=== PATIENT | female | born 1970 | race Asian ===

== ENCOUNTER 2017-06-27 10:57 | Emergency (ER) | payer OTHER ==
[2017-06-27 11:15] VITALS: BMI 29.2
--- NOTE | 2017-06-27 11:42 | PDOC ---
History of Present Illness - General Chief Complaint: Shortness of Breath Stated Complaint: PAIN (PCP SENT) Time Seen by Provider: 06/27/17 11:24 History Source: Patient Exam Limitations: No Limitations - History of Present Illness Initial Comments: 06/27/17 13:51 CC: 2 day h/o shortness of breath Patient is a 46 y.o. female with no noted PMH who presents to our ED today c/o 2 day h/o of shortness of breath. Patient was sent to the ED at the behest of her PCP Dr. Rangel with a request to r/o PE. Patient states she woke up yesterday morning and was short of breath upon exertion. Patient notes an associated sharp pain underneath her L breast that is self-resolving with the shortness of breath. Patient further notes she recently (3 days previous) returned from a trip to [facility]. Patient denies any chest pain, diaphoresis, lightheadedness or abdominal pain. Past History - Past Medical History Allergies/Adverse Reactions: Allergies Allergy/AdvReac Type Severity Reaction Status Date / Time clarithromycin [From Biaxin] Allergy Severe Verified 06/27/17 11:11 Home Medications: Ambulatory Orders Amlodipine Besylate [Norvasc] 5 mg PO DAILY tablet 04/30/14 Lisinopril 20 mg PO DAILY #30 tablet 04/30/14 HTN: Yes - Psycho/Social/Smoking Cessation Hx Suicidal Ideation: No Smoking History: Never smoked Review of Systems - Review of Systems Constitutional: No: Chills, Diaphoresis, Fever, Unexplained wgt Loss HEENTM: No: Eye Pain, Blurred Vision, Double Vision, Tinnitus, Hearing Loss Respiratory: Yes: Shortness of Breath. No: Cough, Orthopnea, Stridor, Wheezing , Hemoptysis Cardiac (ROS): No: Chest Pain, Edema, Irregular Heart Rate, Lightheadedness, Palpitations, Syncope : No: Burning, Dysuria Neurological: No: Headache, Numbness, Seizure, Tingling All Other Systems: Reviewed and Negative *Physical Exam - Vital Signs Last Vital Signs Temp Pulse Resp BP Pulse Ox 98.3 F 67 19 145/99 97 06/27/17 11:11 06/27/17 11:11 06/27/17 11:11 06/27/17 11:11 06/27/17 11:11 - Physical Exam General Appearance: Yes: Nourished, Appropriately Dressed HEENT: positive: EOMI, KOFI Neck: positive: Trachea midline, Supple Respiratory/Chest: positive: Lungs Clear, Normal Breath Sounds, Other (Non- labored respirations, No accessory muscle use) Cardiovascular: positive: Regular Rhythm, Regular Rate, Other (Patient saturation 100% on RA) Extremity: positive: Normal Capillary Refill, Normal Inspection Integumentary: positive: Normal Color, Dry, Warm Neurologic: positive: horseshoer II-XII NML intact, Fully Oriented, Alert ED Treatment Course - LABORATORY CBC & Chemistry Diagram: 06/27/17 12:05 06/27/17 12:05 Medical Decision Making - Medical Decision Making 06/27/17 11:42 Patient is a 46 y.o. female who presents with a 2 day h/o shortness of breath; patient has a recent h/o of extended plane travel from [facility]. PLAN 1. D-Dimer 2. CBC, BMP 3 Urine Preg --> CXR 06/27/17 16:22 During the course of admission, patient's c/o shortness of breath resolved and patient remained SpO2 100% on RA. D-Dimer < 200 and CXR showed no acute pathology. Patient discharged with advice to follow up with PCP and return to the ED should she experience severe discomfort, shortness of breath or chest pain. *DC/Admit/Observation/Transfer Diagnosis at time of Disposition: Gastritis - Discharge Dispostion Disposition: HOME Admit: No - Referrals Referrals: Jorge Alberto Flor MD [Primary Care Provider] - - Patient Instructions Printed Discharge Instructions: Gastritis, DI for Gastroesophageal Reflux Disease (GERD) Additional Instructions: Please return to the ED should you experience severe chest pain, shortness of breath, or severe discomfort. You can try Omeprazole or Pantaprolazole for any abdominal discomfort. Please follow up with your PCP in 3-5 days. Print Language: CROATIAN - Attestations Physician Attestion: 06/27/17 14:15 The notation in this document reflects the medical decision-making process made by me during the course of treating this patient.
[2017-06-27 12:31] LABS: BASOPHIL 0.4 % (0-2.0); EOSINOPHIL 0.8 % (0-4.5); MCH 30.4 pg (25.7-33.7); MCHC 33.1 g/dl (32.0-36.0); MEAN CELL VOLUME 91.8 fl (80-96); NEUTROPHILS 75.3 % (42.8-82.8); PLATELET COUNT 329 K/MM3 (134-434); RDW 13.6 % (11.6-15.6); WHITE BLOOD COUNT 8.8 K/mm3 (4.0-10.0)
[2017-06-27 12:36] LABS: ANION GAP 6 (8-16); CALCIUM 9.4 mg/dL (8.5-10.1); CO2 29 mmol/L (21-32); CREATININE 0.6 mg/dL (0.55-1.02); GLUCOSE,RANDOM 86 mg/dL (74-106)
--- NOTE | 2017-06-27 13:20 | PDOC ---
Attending Attestation - Resident Resident Name: JoseAna - ED Attending Attestation I have performed the following: I have examined & evaluated the patient, The case was reviewed & discussed with the resident, I agree w/resident's findings & plan, Exceptions are as noted - HPI HPI: 06/27/17 13:14 This is a 46 yo F with no major medical problems Pt presents to the ER with a complaint of shortness of breath and chest pain She recently returned from [facility] No cough No fever - Physicial Exam PE: 06/27/17 13:18 RRR CTA B/L No abd tenderness No lower extremity edema - Medical Decision Making 06/27/17 13:20 Pt presenting to the ER with shortness of breath Will do basic labs including D dimer Will do CXR if dimer negative 06/27/17 13:23 Heart Score/ECG Review #1 ECG reviewed & interpreted by me at: 13:20 General ECG Interpretation: Sinus Rhythm, Normal Rate, Normal Intervals, No acute ischemic changes
[2017-06-27 14:42] VITALS: BP 137/84; PULSE 85; TEMP 98.1
--- NOTE | 2017-06-27 16:10 | EKG ---
Test Reason : Blood Pressure : / mmHG Vent. Rate : 064 BPM Atrial Rate : 064 BPM P-R Int : 154 ms QRS Dur : 088 ms QT Int : 442 ms P-R-T Axes : 045 028 019 degrees QTc Int : 455 ms NORMAL SINUS RHYTHM NORMAL ECG NO PREVIOUS ECGS AVAILABLE Confirmed by MD RILEY, TREASURE ([id number]) on 06/27/2017 4:10:20 PM Referred By: Confirmed By:TREASURE LIN MD
== END 2017-06-27 14:43 | disposition home or self-care (01) ==
LOC: JER 10:57
DX: K29.70 Gastritis, unspecified, without bleeding (principal)
CPT/HCPCS: 36415; 71020-TC; 80048; 84702; 84703; 85025; 85379; 93005; 93010; 99283-25